=== PATIENT | female | born 1995 | race African-American/Black ===

== ENCOUNTER 2021-09-29 18:00 | Observation (INO) ==
[2021-09-29 18:59] LABS: Basophils % 0.2 % (0.0-0.8); Eosinophils % 0.1 % (0.00-10.9); Hematocrit 33.3 VOL% (35.7-47.0); Hemoglobin 10.4 GM/DL (12.0-16.0); Immature Granulocytes % 0.5 %; Immature Granulocytes Absolute 0.07 #; Lymphocytes # 1.5 10*3/uL (1.4-4.0); Lymphocytes % 9.5 % (21.3-54.2); Mean Corpuscular HGB Conc 31.2 GM/DL (32-36); Mean Platelet Volume 10.5 FL (9.6-12.0); Monocytes % 6.3 % (1.7-12.7); Neutrophils % 83.4 % (38.7-73.9); Platelet Count 358 T/CUMM (130-400); Red Blood Count 4.27 MC/CUMM (3.8-5.5); Red Cell Distribution Width 19.5 % (9.3-17.3); White Blood Count 15.4 T/CUMM (4-12)
[2021-09-29] MEDS ORDERED: SODIUM CHLORIDE 0.9% 1,000 ML IV STA (19:05)
[2021-09-29] MEDS ORDERED: ONDANSETRON 4 MG/2 ML VIAL IV STA (19:05)
[2021-09-29] MEDS ORDERED: METOCLOPRAMIDE 10 MG/2 ML VIAL IV STA (19:05)
[2021-09-29] MEDS ORDERED: PANTOPRAZOLE 40 MG VIAL IV STA (19:05)
[2021-09-29] MEDS ORDERED: MORPHINE 4 MG/1 ML VIAL IV STA ×2 (19:08→20:51)
[2021-09-29 19:18] LABS: Alanine Aminotransferase 30 U/L (13-56); Albumin 3.9 G/DL (3.4-5.0); Alkaline Phosphatase 68 U/L (45-117); Aspartate Amino Transferase 22 U/L (0-37); Bilirubin,Total < 0.39 MG/DL (0.20-1.00); Blood Urea Nitrogen 16 MG/DL (7-18); Calcium 9.1 MG/DL (8.5-10.1); Carbon Dioxide 23 MMOL/L (21-32); Estimated Glom Filtration Rate 157 ML/MIN; Glucose 109 MG/DL (74-106); Osmolality,Calculated 271.1 MOS/KG (273-304); Potassium 3.7 MMOL/L (3.5-5.1); Sodium 135 MMOL/L (136-145); Total Protein 7.9 G/DL (6.4-8.2)
[2021-09-29 20:25] LABS: Bilirubin,Urine Negative (Negative); Blood, Urine Negative (Negative); Glucose,Urine (UA) Negative (Negative); Ketones,Urine Negative (Negative); Nitrite,Urine Negative (Negative); Protein,Urine Negative; Urine Appearance Clear (Clear); Urine Color Yellow (Yellow); Urine Specific Gravity 1.015 (1.001-1.035)
[2021-09-29 20:26] LABS: Urine Urobilinogen 0.2 EU/DL (<2.0)
[2021-09-29 20:27] LABS: Bacteria,Urine Occasional /HPF (Few); Mucus,Urine Moderate /LPF (Occasional); RBC,Urine 8 /HPF (0-4); Squamous Epithelial Cell,Urine Few /HPF (0-10)
[2021-09-29] MEDS ORDERED: PIPERACILLIN/TAZOBACTAM 3,375 MG in SODIUM CHLORIDE 0.9% 100 ML IV STA (20:49)
[2021-09-29] MEDS ORDERED: ONDANSETRON 4 MG/2 ML VIAL IV PRN (20:58)
[2021-09-29] MEDS ORDERED: ACETAMINOPHEN 325 MG TABLET PO PRN (20:58)
[2021-09-29] MEDS: LACTATED RINGERS 1,000 ML IV SCH (22:35)
[2021-09-30] MEDS: MORPHINE 4 MG/1 ML VIAL IV PRN ×4 (02:27→12:07)
[2021-09-30] MEDS: PIPERACILLIN/TAZOBACTAM 3,375 MG in SODIUM CHLORIDE 0.9% 100 ML IV SCH ×2 (03:22→13:40)
[2021-09-30 05:26] LABS: Basophils % 0.2 % (0.0-0.8); Eosinophils # 0.1 10*3/uL (0.0-0.87); Eosinophils % 0.4 % (0.00-10.9); Hematocrit 28.1 VOL% (35.7-47.0); Hemoglobin 8.7 GM/DL (12.0-16.0); Immature Granulocytes % 0.5 %; Immature Granulocytes Absolute 0.07 #; Lymphocytes # 2.7 10*3/uL (1.4-4.0); Lymphocytes % 19.2 % (21.3-54.2); Mean Corpuscular Volume 79.2 FL (87-102); Mean Platelet Volume 11.1 FL (9.6-12.0); Monocytes % 7.4 % (1.7-12.7); Neutrophils % 72.3 % (38.7-73.9); Platelet Count 311 T/CUMM (130-400); Red Blood Count 3.55 MC/CUMM (3.8-5.5); Red Cell Distribution Width 19.2 % (9.3-17.3)
[2021-09-30 05:44] LABS: Osmolality,Calculated 274.7 MOS/KG (273-304); Potassium 3.7 MMOL/L (3.5-5.1)
[2021-09-30 06:11] LABS: Anisocytosis 1+; Band Neutrophils 2 % (0-10); Eosinophils 1 % (0-10); Lymphocytes 19 % (20-55); Platelet Estimate Normal; Segmented Neutrophils 69 % (50-85); Total Cells Counted 100
[2021-09-30] MEDS ORDERED: ROCURONIUM 50 MG/5 ML VIAL IV ONE (06:42)
[2021-09-30] MEDS ORDERED: propofoL 200 MG/20 ML VIAL IV ONE (06:42)
[2021-09-30] MEDS ORDERED: fentaNYL 100 MCG/2 ML VIAL ONE (06:42)
[2021-09-30] MEDS ORDERED: ONDANSETRON 4 MG/2 ML VIAL ONE (06:42)
[2021-09-30] MEDS ORDERED: LIDOCAINE 2% 5 ML VIAL ONE ×2 (06:42→08:52)
[2021-09-30] MEDS ORDERED: SEVOFLURANE 1 UNIT/15 MINUTE INH ONE ×6 (06:42→07:57)
[2021-09-30] MEDS ORDERED: GLYCOPYRROLATE 0.4 MG/2 ML VIAL ONE ×2 (06:43→07:57)
[2021-09-30] MEDS ORDERED: KETOROLAC 30 MG/1 ML VIAL ONE (06:43)
[2021-09-30] MEDS ORDERED: MIDAZOLAM 2 MG/2 ML VIAL ONE (06:43)
[2021-09-30] MEDS ORDERED: ACETAMINOPHEN INJ 1,000 MG/100 ML VIAL IV ONE (06:43)
[2021-09-30] MEDS ORDERED: DEXAMETHASONE 4 MG/1 ML VIAL ONE ×2 (06:43)
[2021-09-30] MEDS ORDERED: LIDOCAINE 1%/EPI INJ 20 ML VIAL ONE (06:50)
[2021-09-30] MEDS ORDERED: BUPIVACAINE MPF 0.25% 30 ML VIAL ONE (06:50)
[2021-09-30] MEDS ORDERED: TISSUE ADHESIVE 1 EACH APPLICATOR TOP ONE (06:50)
[2021-09-30] MEDS: LACTATED RINGERS 1,000 ML IV SCH (06:59)
[2021-09-30] MEDS ORDERED: CLINDAMYCIN INJ 900 MG/50 ML PREMIX IV ONE (07:10)
[2021-09-30] MEDS ORDERED: LACTATED RINGERS 1,000 ML IV SCH (08:00)
[2021-09-30] MEDS ORDERED: SUGAMMADEX 200 MG/2 ML VIAL IV ONE (08:33)
[2021-09-30] MEDS ORDERED: PANTOPRAZOLE 40 MG TABLET PO SCH (09:00)
[2021-09-30] MEDS ORDERED: ONDANSETRON 4 MG/2 ML VIAL IV PRN (09:25)
[2021-09-30] MEDS ORDERED: MORPHINE 10 MG/1 ML VIAL ONE (09:27)
[2021-09-30 12:05] VITALS: BP 132/74
== END 2021-09-30 14:16 | disposition home or self-care (01) ==
LOC: N.ED 18:00 → N.3W 18:00 → N.5E 22:04
PROVIDERS: ADMIT Student in an Organized Health Care Education/Training Program; ATTEND Student in an Organized Health Care Education/Training Program